=== PATIENT | female | born 1980 | race Caucasian/White ===

== ENCOUNTER 2022-11-23 11:34 | Emergency (ER) | payer MEDICAID, SELFPAY ==
[2022-11-23 12:04] VITALS: BP 180/127; PULSE 70; RESP 18; TEMP 36; O2SAT 99; BMI 39.0
--- NOTE | 2022-11-23 13:01 | ED_ITS ---
HPI - Dental/Oral General Time Seen by Provider: 13:01 Date Seen: 11/23/22 Chief complaint: Dental/Oral/Mouth Injury/Pain Stated complaint: Lower teeth pain Time Seen by Provider: 11/23/22 12:55 Source: patient Mode of arrival: ambulatory Limitations: no limitations History of Present Illness HPI Narrative: Patient is a 41-year-old female with no medical issues presented emergency department for tooth pain. She says the pain started about a week ago. She has been trying given with a dentist but cannot get in until December. She states she has had symptoms like this intermittently in the past and antibiotics have helped her previously. States she has taken Tylenol and ibuprofen with some improvement in her symptoms. Denies fevers, chills, chest pain, shortness of breath, difficulty swallowing or breathing. She had also states when she brushes her teeth the gums were began to bleed. It is teeth 23 through 26 that is causing her issue. Related Data Home Medications Medication Instructions Recorded Confirmed bisoprolol fumarate 5 mg tablet 5 mg PO DAILY 11/23/22 11/23/22 Previous Rx's Medication Instructions Recorded amoxicillin 500 mg capsule 500 mg PO TID #15 caps 11/23/22 Allergies Allergy/AdvReac Type Severity Reaction Status Date / Time adhesives Allergy Mild rash, Uncoded 11/23/22 12:09 redness at site Review of Systems Status of ROS: Reports: 6 or more systems reviewed and unremarkable except as noted in History and below [facility] Social History Smoking Status: Unknown if ever smoked How often do you have a drink containing alcohol: never AUDIT-C Alcohol total score: 0 Non-prescribed substance use: denies use Exam Narrative: Exam Narrative: Const: Well-nourished, Well-developed, in mild distress Eyes: PERRL, no conjunctival injection, and symmetrical lids ENMT: Atraumatic external nose and ears. Moist mucous membranes. Inflammation noted to the gum surrounding tooth 23 through 26. Previous dental work seen. Uvula midline. No obvious signs of deep neck space abscess Neck: Symmetric, trachea midline, No thyromegaly. CVS: RRR, No murmurs or gallops. Peripheral pulses 2+ and equal in all extremities RESP: Unlabored respiratory effort. Clear to auscultation bilaterally. MSK:Extremities w/o deformity, Normal Active ROM Skin: Warm, Dry. No rashes or lesions. Neuro: Normal Muscle tone, No focal neurological deficits. Psych: Awake, Alert, & Oriented x3. Appropriate mood and affect. Const: Vital Signs, click to edit/add: Vital Signs - 24 hr 11/23/22 12:04 Temperature 96.8 F L Pulse Rate [Right Pulse Oximeter] 70 Respiratory Rate 18 Blood Pressure [Le ft Upper Arm] 180/127 H Pulse Oximetry 99 Oxygen Delivery Me thod Room Air Course Vital Signs Vital signs: Initial Vital Signs Temperature 96.8 F L 11/23/22 12:04 Temperature Source Temporal Artery Scan 11/23/22 12:04 Pulse Rate 70 11/23/22 12:04 Respiratory Rate 18 11/23/22 12:04 Blood Pressure 180/127 H 11/23/22 12:04 Blood Pressure Mean 144 H 11/23/22 12:04 Blood Pressure Position Sitting 11/23/22 12:04 Pulse Oximetry 99 11/23/22 12:04 Oxygen Delivery Method Room Air 11/23/22 12:04 Vital Signs Temperature 96.8 F L 11/23/22 12:04 Pulse Rate 70 11/23/22 12:04 Respiratory Rate 18 11/23/22 12:04 Blood Pressure 180/127 H 11/23/22 12:04 Pulse Oximetry 99 11/23/22 12:04 Oxygen Delivery Method Room Air 11/23/22 12:04 Temperature 96.8 F L 11/23/22 12:04 Pulse Rate 70 11/23/22 12:04 Respiratory Rate 18 11/23/22 12:04 Blood Pressure 180/127 H 11/23/22 12:04 Pulse Oximetry 99 11/23/22 12:04 Oxygen Delivery Method Room Air 11/23/22 12:04 MDM - Dental/Oral MDM Narrative Medical decision making narrative: Patient is a 41-year-old female presented emergency department for pain to teeth 23 through 26. Pain has been going on for a week. She can see a dentist next month. On exam there is inflammation to the gum surrounding previous mention teeth. She has previous dental work done. She has below average dentition. Brii ruiz has no signs of deep neck space abscesses at this time I am not concerned about any impending airway issues. Physical exam was otherwise unremarkable. She will be discharged home with amoxicillin. She is agreeable to this plan. She is hypertensive at this time but is having no symptoms from it I do not believe workup is necessary. Differential Diagnosis Differential diagnosis: Likely gingival abscess, dental caries, toothache and dental abscess Discharge Plan Discharge Clinical Impression: Dental caries Patient Disposition: Home, Self-Care Condition: Stable Instructions: Mouth Care (ED) Additional Instructions: Follow-up with your dentist. Return for new or worsening symptoms. Take Tylenol and ibuprofen for pain. Prescribed amoxicillin. If you begin to develop difficulty swallowing or breathing return to the emergency department Prescriptions: New amoxicillin 500 mg capsule 500 mg PO TID Qty: 15 0RF No Action bisoprolol fumarate 5 mg tablet 5 mg PO DAILY Stand Alone Forms: [employer] Info Instructions
== END 2022-11-23 13:18 | disposition home or self-care (01) ==
LOC: ED 13:09
PROVIDERS: Emergency Provider Student in an Organized Health Care Education/Training Program
DX: K02.9 Dental caries, unspecified (principal)
CPT/HCPCS: 99282; 99283

== ENCOUNTER 2023-04-14 09:51 | Emergency (ER) | payer OTHER, MEDICAID, SELFPAY ==
[2023-04-14 10:08] VITALS: BP 150/82; PULSE 66; RESP 16; TEMP 36.4; O2SAT 96; BMI 38.1
--- NOTE | 2023-04-14 11:00 | ED_ITS ---
HPI - Wound/Laceration General Time Seen by Provider: 11:00 Date Seen: 04/14/23 Chief Complaint: Laceration/Wound Stated Complaint: Lac R finger Time Seen by Provider: 04/14/23 11:00 Source: patient and RN notes reviewed Mode of arrival: ambulatory Limitations: no limitations History of Present Illness HPI narrative: Navi is a very pleasant 42-year-old female previously healthy who comes to the [facility] for evaluation regarding a laceration to her right 5th finger at work. Patient notes that this was from the edge of a can. Patient works at [employer] and makes [employer]. She is able to flex and extend her finger. She does note it does hurt somewhat. She thinks her last tetanus may have been around 2003 but is not certain. Patient is not a diabetic. No numbness or tingling in this area. Related Data Home Medications Medication Instructions Recorded Confirmed bisoprolol fumarate 5 mg tablet 5 mg PO DAILY 11/23/22 04/14/23 Previous Rx's Medication Instructions Recorded amoxicillin 500 mg capsule 500 mg PO TID #15 caps 11/23/22 Allergies Allergy/AdvReac Type Severity Reaction Status Date / Time adhesives Allergy Mild rash, Uncoded 11/23/22 12:09 redness at site Review of Systems Status of ROS: Reports: 6 or more systems reviewed and unremarkable except as noted in History and below [facility] Social History Smoking Status: Current some day smoker How often do you have a drink containing alcohol: never AUDIT-C Alcohol total score: 0 Non-prescribed substance use: denies use Exam Narrative: Exam Narrative: Alert and oriented very pleasant young woman in no acute distress. Examination of her right 5th finger shows a 1.1 cm laceration extending from the medial aspect near the PIP onto the dorsal surface of her 5th finger. When she flexes her finger you can see that the epidermis and dermis or compromise. No underlying structures are noted. Strength and motor fully intact with extension of both the D IP and PIP. Sensation is also intact. No foreign bodies are noted. This wound was cleansed by nursing. No foreign bodies were noted. Anesthetized with 1% lidocaine with epinephrine. Wound was irrigated with 30 mL of normal saline. Three sutures of 4-0 Ethilon were placed in interrupted fashion with good wound closure. Patient tolerated procedure well Const: Vital Signs, click to edit/add: Vital Signs - 24 hr 04/14/23 10:08 Temperature 97.6 F Pulse Rate [Pulse Oximeter] 66 Respiratory Rate 16 Blood Pressure [Le ft Upper Arm] 150/82 H Pulse Oximetry 96 Oxygen Delivery Me thod Room Air Documenting provider has reviewed patient's vital signs: yes Course Vital Signs Vital signs: Initial Vital Signs Temperature 97.6 F 04/14/23 10:08 Temperature Source Temporal Artery Scan 04/14/23 10:08 Pulse Rate 66 04/14/23 10:08 Respiratory Rate 16 04/14/23 10:08 Blood Pressure 150/82 H 04/14/23 10:08 Blood Pressure Mean 104 04/14/23 10:08 Blood Pressure Position Supine 04/14/23 10:08 Pulse Oximetry 96 04/14/23 10:08 Oxygen Delivery Method Room Air 04/14/23 10:08 Vital Signs Temperature 97.6 F 04/14/23 10:08 Pulse Rate 66 04/14/23 10:08 Respiratory Rate 16 04/14/23 10:08 Blood Pressure 150/82 H 04/14/23 10:08 Pulse Oximetry 96 04/14/23 10:08 Oxygen Delivery Method Room Air 04/14/23 10:08 Temperature 97.6 F 04/14/23 10:08 Pulse Rate 66 04/14/23 10:08 Respiratory Rate 16 04/14/23 10:08 Blood Pressure 150/82 H 04/14/23 10:08 Pulse Oximetry 96 04/14/23 10:08 Oxygen Delivery Method Room Air 04/14/23 10:08 Medications Administered Medications: Generic Name Dose Route Start Last Admin Trade Name Freq PRN Reason Stop Dose Admin Lidocaine/Epinephrine 20 ml 04/14/23 11:04 04/14/23 11:25 Lidocaine 1%-Epi 1:100,000 20 Ml INFILTRATI 04/14/23 11:05 20 ml ONCE ONE Administration MDM - Wound/Laceration MDM Narrative Medical decision making narrative: 1. 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 I have told her that suture removal will be in 10 days time. She should monitor for signs and symptoms of infection which we have discussed. Further I would like her to limit bending over the next 3-5 days as those wound edges start to adhere to each other. She is advised that she may wash your hands are shower but she should not be soaking her hand in water until sutures are removed. Tylenol or ibuprofen as needed for pain 2. Disposition-last tetanus was in 2014 and patient elects not to update at this time. Return as needed for worsening symptoms. Discharge Plan Discharge Clinical Impression: Laceration Patient Disposition: Home, Self-Care Condition: Improved Additional Instructions: suture removal in 10 days keep clean and dry. you may shower or wash your hands but do not soak wound in a tub or pool, etc. No dish washing monitor for infection. Seek medical attention for pus like drainage, increaseing redness or fever Limit extreme bending for at least 3-5 days Prescriptions: No Action bisoprolol fumarate 5 mg tablet 5 mg PO DAILY amoxicillin 500 mg capsule 500 mg PO TID Qty: 15 0RF Follow Up/Referrals: Provider,Not a Local [Primary Care Provider] - Stand Alone Forms: [employer] Info Instructions
--- NOTE | 2023-04-14 11:41 | ED.NURSE ---
Bacitracin, bandaid, and gauze roll applied to wound on pt R pinky finger.
== END 2023-04-14 11:42 | disposition home or self-care (01) ==
LOC: ED 11:13
PROVIDERS: Emergency Provider Family Medicine
DX: S61.216A Laceration without foreign body of right little finger without damage to nail, initial encounter (principal); W26.9XXA Contact with unspecified sharp object(s), initial encounter
CPT/HCPCS: 12001; 99283

== ENCOUNTER 2023-09-05 15:19 | Emergency (ER) | payer MEDICAID, SELFPAY ==
[2023-09-05 15:23] VITALS: BP 158/87; PULSE 68; RESP 18; TEMP 36.2; O2SAT 100; BMI 37.2
--- NOTE | 2023-09-05 15:44 | ED_ITS ---
HPI - General Adult General Chief complaint: Unspecified Complaint, Adult Stated complaint: possible eyebrow infection Time Seen by Provider: 09/05/23 15:25 History of Present Illness HPI narrative: This 42-year-old female has a piercing in her right eyebrow that she had placed about 2 months ago. She states that she bumped her eyebrow recently and now has some erythema and a little bit a crusting on the inferior pole of the the piercing. She wonders if there may be an infection. Related Data Home Medications Medication Instructions Recorded Confirmed bisoprolol fumarate 5 mg tablet 5 mg PO DAILY 11/23/22 09/05/23 Previous Rx's Medication Instructions Recorded cephalexin 500 mg capsule 500 mg PO TID 3 days #9 caps 09/05/23 Allergies Allergy/AdvReac Type Severity Reaction Status Date / Time adhesives Allergy Mild rash, Uncoded 11/23/22 12:09 redness at site Review of Systems Status of ROS: Reports: 10 or more systems reviewed and unremarkable except as noted in History and below Narrative: Constitutional: No fevers, no weight gain or loss. Eyes: No discharge. No vision changes. HENT: No congestion, no sore throat, no ear pain. Cardiovascular: No chest pain, no palpitations. Respiratory: No shortness of breath, no wheezes, no cough. Gastrointestinal: No abdominal pain, no vomiting, no diarrhea. Genitourinary: No dysuria, no hematuria. Musculoskeletal: Normal range of motion. Skin: No rashes, no pruritis. Neurological: No dizziness, weakness, sensory change, speech change. Endo/Heme/Allergies: No bruising or bleeding. No polydipsia. Pysch: no suicidality, no anxiety, no insomnia. All other systems reviewed and are negative. [facility] Social History Smoking Status: Current every day smoker What tobacco products do you use: cigarettes How often do you have a drink containing alcohol: never How often do you have six or more drinks on one occasion: Never AUDIT-C Alcohol total score: 0 Non-prescribed substance use: denies use Exam Narrative: Exam Narrative: Constitutional: Well-developed, well-nourished, no acute distress. HEENT: Normocephalic, atraumatic. Mild erythema around the piercing of the right eyebrow with mild swelling. No purulent drainage. Neck: Normal range of motion. Nontender. Supple. Heart: Intact distal pulses. Lungs: No chest discomfort. No wheezes, rhonchi, or rales. Abdomen: Nontender. Back: Normal range of motion. Extremities: Normal range of motion. No injury. Skin: Intact. No rash. Warm. No erythema or pallor. Neurologic: No altered sensation. No weakness. Alert and oriented. Psychiatric: No suicidality. No anxiety or depression. No insomnia. Nursing notes and vitals signs are reviewed. Const: Vital Signs, click to edit/add: Vital Signs - 24 hr 09/05/23 15:23 Temperature 97.2 F L Pulse Rate [Right Pulse Oximeter] 68 Respiratory Rate 18 Blood Pressure [Ri ght Upper Arm] 158/87 H Pulse Oximetry 100 Oxygen Delivery Me thod Room Air Course Vital Signs Vital signs: Initial Vital Signs Temperature 97.2 F L 09/05/23 15:23 Temperature Source Temporal Artery Scan 09/05/23 15:23 Pulse Rate 68 09/05/23 15:23 Respiratory Rate 18 09/05/23 15:23 Blood Pressure 158/87 H 09/05/23 15:23 Blood Pressure Mean 110 H 09/05/23 15:23 Blood Pressure Position Sitting 09/05/23 15:23 Pulse Oximetry 100 09/05/23 15:23 Oxygen Delivery Method Room Air 09/05/23 15:23 Vital Signs Temperature 97.2 F L 09/05/23 15:23 Pulse Rate 68 09/05/23 15:23 Respiratory Rate 18 09/05/23 15:23 Blood Pressure 158/87 H 09/05/23 15:23 Pulse Oximetry 100 09/05/23 15:23 Oxygen Delivery Method Room Air 09/05/23 15:23 Temperature 97.2 F L 09/05/23 15:23 Pulse Rate 68 09/05/23 15:23 Respiratory Rate 18 09/05/23 15:23 Blood Pressure 158/87 H 09/05/23 15:23 Pulse Oximetry 100 09/05/23 15:23 Oxygen Delivery Method Room Air 09/05/23 15:23 Medical Decision Making MDM Narrative Medical decision making narrative: This patient has an eyebrow piercing on the right side that was bumped recently and now she is concerned there may be infection. She does have some mild swelling and erythema that seems more likely to be related to trauma rather than infection. There is no sign of abscess or purulent drainage except for a little bit a crusting on the inferior entry of the piercing. I stated to the patient that it does not appear to be in infection but agreed to give her a few days of Keflex just in abundance of caution. Discharge Plan Discharge Clinical Impression: Injury of eyebrow Patient Disposition: Home, Self-Care Condition: Stable Additional Instructions: Take medication as prescribed. Follow up with MD return if worsening. Prescriptions: New cephalexin 500 mg capsule 500 mg PO TID 3 Days Qty: 9 0RF No Action bisoprolol fumarate 5 mg tablet 5 mg PO DAILY Follow Up/Referrals: Provider,Not a Local [Primary Care Provider] - Stand Alone Forms: [employer] Info Instructions
--- OUTSIDE RECORDS SUMMARY | 2023-09-05 15:55 | XMS_ITS | Clinical Summary ---
Author Name Unknown Organization [facility] Address [place], [place] [address] Care Team Providers Care Stave Inspector Name Role Phone Brandi Concepcion MD Primary [facility] Allergies No known active allergies Medications Medication Sig Dispensed Refills Start Date End Date Status clotrimazole (LOTRIMIN) 1 % creamIndications:Itch ing in the vaginal area Apply topically to affected area(s) two times daily. 45 g 07/09/2022 Active Blood Pressure Monitor KitIndications:Elevat ed blood pressure reading without diagnosis of hypertension Frequency of testing: once a day 1 Each 12/08/2022 Active amLODIPine (NORVASC) 2.5 mg tabletIndications:HTN (hypertension) Take 1 Tablet (2.5 mg) by mouth once daily. 90 Tablet 3 12/29/2022 Active eletriptan (Relpax) 40 mg tabletIndications:Oth er migraine without status migrainosus, not intractable Take 0.5 Tablets (20 mg) by mouth every 2 hours if needed for Migraine (max of 2 doses in 24 hours.). Max dose: 40mg in 24 hrs. >She failed imitrex. 6 Tablet 3 12/29/2022 Active bisoprolol (ZEBETA) 5 mg tabletIndications:Pal pitations Take 1 Tablet (5 mg) by mouth once daily. 90 Tablet 07/18/2023 Active Hospital, Clinic, or Other Facility Administered Medication Ordered Dose Route Frequency Start Date End Date Status etonogestrel subdermal implant (NEXPLANON) 68 mg implant [address],Encounter for removal and reinsertion of Nexplanon 1 Each Sdrm Q 3 YEARS 11/19/2022 11/18/2025 Active Active Problems Problem Noted Date Diagnosed Date HTN (hypertension) 12/29/2022 Prediabetes 12/08/[address] 11/17/2019 Overview: Placed in right arm on 11/17/22. Due for removal in 3 years-11/17/25. Alpa Branch PA-C, Family Medicine.....................11/19/2022 10:18 AM Palpitations Overview: PVCs, on medication Dec note from [place] had visit for follow up of PVCs - seen on extended holter monitor. Has been on 2 other medications and bisoprolol has worked the best. History of Chiari malformation Overview: h/o mild chiari malformation and has seen the neurologist in the past Resolved Problems Problem Noted Date Diagnosed Date Resolved Date Palpitations 11/17/2019 Encounters Date Type Department Care Team Description 07/17/[address] [id number] Brandi Concepcion MD Refill Request (Bisoprolol 5mg) from Last 3 Months Immunizations Name Administration Dates Next Due Influenza A (H1N1), Inactivated 04/08/2009 Td (Age >=7 Years) 01/24/2009 Tdap 08/10/2014 Family History Medical History Relation Name Comments Diabetes Brother Good Health Daughter Coronary artery disease Father firs t heart attack at age 58, 2nd HERNANDEZ at age 63 s/p triple bypass Diabetes Father Hyperlipidemia Father Diabetes Half-Brother COPD Maternal Grandfather Cirrhosis Maternal Grandfather Esophageal cancer Maternal Grandmother COPD Mother Diabetes Mother Cancer-prostate Paternal Grandfather Diabetes Paternal Grandmother Diabetes Sister Relation Name Status Comments Brother Alive Daughter Alive Father Alive Half-Brother Alive Maternal Grandfather (Age 60) Ci rrhosis, COPD Maternal Grandmother (Age 78) es ophageal cancer Mother Alive Paternal Grandfather (Age 93) pr ostate cancer Paternal Grandmother (Age 77) co mplications of diabetes Sister Alive Social History Tobacco Use Types Packs/Day Years Used Date Smoking Tobacco: Every Day Cigarettes 1 27.4 Started: 1996 Smokeless Tobacco: Never Tobacco Cessation:Ready to Q uit: No; Counseling Given: Yes Alcohol Use Standard Drinks/Week Comments Not Currently 0 (1 standard drink = 0.6 oz pur e alcohol) PHQ-2 Answer Date Recorded PHQ-2 TOTAL SCORE 1 12/08/2022 Social Connections Answer Date Recorded Frequency of Communication with Friends and Fami ly Not on file 07/17/2023 Financial Resource Strain Answer Date R ecorded Difficulty of Paying Living Expenses 3 07/09/2022 Difficulty of Paying Living Expenses Not on file 07/09/2022 Food Insecurity Answer Date Recorded Worried About Running Out of Food in the Last Ye ar 1 07/09/2022 Transportation Needs Answer Date Record ed Lack of Transportation (Medical) 1 07/09/2022 Housing Stability Answer Date Recorded Unable to Pay for Housing in the Last Year 1 07/09/2022 Sex and Gender Information Value Date Recorded Sex Assigned at Not on file Gender Identity Not on file Sexual Orientation Not on file Obstetrics History Last Filed Vital Signs Vital Sign Reading Time Taken Comments Blood Pressure 130/70 12/29/2022 1:58 PM CDT Pulse 63 12/29/2022 1:58 PM CDT Temperature 36.9 ??C (98.4 ??F) 11/22/2022 2:41 PM CD T Respiratory Rate 20 11/22/2022 2:41 PM CDT Oxygen Saturation 98% 12/08/2022 11:21 AM CDT Inhaled Oxygen Concentration - - Weight 101.6 kg (224 lb) 12/29/2022 1:58 PM CDT Height 160 cm (5' 3) 11/22/2022 2:43 PM CDT Body Mass Index 39.68 11/22/2022 2:43 PM CDT Plan of Treatment Health Maintenance Due Date Last Done Comments Pneumococcal series for age 6-64 (1 of 2 - PCV) 1988 COVID-19 vaccine series ( - 2022- season) 2022 BMI (ht and wt on same day) for age 18+ 07/10/2023 07/09/2022, 01/01/2021, 11/15/2020, Additional history exists Depression screening for age 12+ 12/09/2023 12/08/2022, 01/02/2021, 01/01/2021, Additional history exists Influenza for age 9-49 12/19/2023 04/08/2009 Tetanus booster 08/10/2024 08/10/2014, 01/24/2009 Pap test for age 21-65 10/30/2024 10/31/2019, 2019 Tdap Completed 08/10/2014 HIV for age 15-65 Completed 07/09/2022 Hepatitis C screening for ag e 18-79 Completed 07/09/2022 Procedures Procedure Name Priority Date/Time Associated Diagnosis Comments LC HIV-1/O/2, 4TH GENERATION Routine 07/09/2022 3:19 PM CDT Screening for STDs (sexually transmitted diseases) LC HCV ANTIBODY RFX TO QUANT PCR Routine 07/09/2022 3:19 PM CDT Screening for STDs (sexually transmitted diseases) HERITAGE CONSULTANT THIN PREP PAP SCREEN IMAGED Routine 10/31/2019 11:42 AM CDT Screening for malignant neoplasm of cervix from Last 3 Months or Most Recently Relevant to Health Maintenance Results * LC HCV ANTIBODY RFX TO QUANT PCR (07/09/2022 3:19 PM CDT) HCV Ab Non Reactive Non Reactive 07/14/2022 11:[address] [facility] Blood BLOOD SPECIMEN / Unknown Venipuncture / Unknown 07/09/2022 3:19 PM CDT 07/09/2022 3:22 PM CDT Narrative [facility] ([facility]) - 07/14/2022 11:10 AM CDT Performed at: ??[address] ??[id number] Maintainer Plant: Thomas Hayes MD, Phone: ??[phone] [facility] ([facility]) [address] [place] [address] * LC HIV-1/O/2, 4TH GENERATION (07/09/2022 3:19 PM CDT) Pathologist [facility] HIV Scr 4th Gen Non Reactive Non Reactive 07/14/2022 11:[address] [facility] ([facility]) Comment: HIV Negative HIV-1/HIV-2 antibodies and HIV-1 p24 antigen were NOT detected. There is no laboratory evidence of HIV infection. Blood BLOOD SPECIMEN / Unknown Venipuncture / Unknown 07/09/2022 3:19 PM CDT 07/09/2022 3:22 PM CDT Narrative [facility] ([facility]) - 07/14/2022 11:10 AM CDT Performed at: ??[address] ??[id number] Maintainer Plant: Thomas Hayes MD, Phone: ??[phone] [facility] ([facility]) [address] [place] [address], * HERITAGE CONSULTANT THIN PREP PAP SCREEN IMAGED [[id number]] (10/31/2019 11:42 AM CDT) [facility] Case Report Gynecologic Cytology Report ? Case: [id number] ? Authorizing Provider: ??Alpa Gamboa MD ??Collected: ? 10/31/2019 1142 ? Ordering Location: ? [facility] ?Received: ?10/31/2019 1239 ? Clinic ? First Screen: ?Nickolas Hopper ? Specimen: ?HERITAGE CONSULTANT ThinPrep Vial Screening, Cervical ? 11/03/2019 1:51 PM CDT [facility] INTERPRETATION/ RESULT NEGATIVE FOR INTRAEPITHELIAL LESION OR MALIGNANCY (NIL) (none) 11/03/2019 1:51 PM CDT [facility] IMEN ADEQUACY Satisfactory for evaluation Endocervical component present 11/03/2019 1:51 PM CDT [facility] [employer] HPV REQUEST HPV and PAP 11/03/2019 1:51 PM CDT [facility] [employer] [facility] Date of LMP 10/10/2019 11/03/2019 1:51 PM CDT [facility] [employer] [facility] Last Pap Date 2016 11/03/2019 1:51 PM CDT [facility] Last Pap Result NIL 0 1:51 PM CDT [facility] Abnormal Pap or Falun Bx in last 5 years No 11/03/2019 1:51 PM CDT [facility] [facility] Menstrual Status Regular Periods 11/03/2019 1:51 PM CDT [facility] [employer] [facility] Falun Bx Done Today No 11/03/2019 1:51 PM CDT [facility] Additional Information None given 11/03/2019 1:51 PM CDT [facility] Comment: Cytology is screened at [facility] - [address], [place] [address] and [facility] - [address] [place] [address], [place] [address] and [facility] - [address] [place] [address] Interpreted at [facility] - [address] [place] [address], [place] [address] Automated Review Successful 11/03/2019 1:51 PM CDT [facility] Comment:Specimen processed s uccessfully by automated funeral director/embalmer device, [employer] System, [email or web address] ANCILLARY TESTING HERITAGE CONSULTANT HPV Ordered, Please see separate report 11/03/2019 1:51 PM CDT [facility] Note The pap test is a screening technique, not a diagnostic procedure. It is used primarily to screen for squamous cancers and precursor lesions. Published studies have shown that it is subject to both false negative and false positive results. The pap test should not be used as the sole means to diagnose or exclude pre-malignant and malignant lesions. 11/03/2019 1:51 PM CDT [facility] Other (Cervical) Non-Blood / Unknown 10/31/2019 11:42 AM CDT 10/31/2019 12:39 PM CDT Alpa Gamboa MD PATHOLOGY/[facility]OLO [facility] [address] [place] [address], [place] from Last 3 Months or Most Recently Relevant to Health Maintenance Care Teams Stave Inspector Relationship Specialty Start Date End Date Brandi Concepcion MD [address] [place], [place] [address] [address] PCP - General Family Practice 07/09/22
== END 2023-09-05 15:55 | disposition home or self-care (01) ==
LOC: ED 15:54
PROVIDERS: Emergency Provider Emergency Medicine Emergency Medical Services
DX: S05.8X1A Other injuries of right eye and orbit, initial encounter (principal); W22.8XXA Striking against or struck by other objects, initial encounter
CPT/HCPCS: 99283; 99284

== ENCOUNTER 2024-07-06 05:25 | Emergency (ER) | payer OTHER, SELFPAY ==
--- OUTSIDE RECORDS SUMMARY | 2024-07-06 05:27 | XMS_ITS | Clinical Summary ---
Author Organization [employer] [facility] [facility] Address [address] [place] [address] Care Team Providers Care Frame And Scrap Crusher Name Role Phone Anali Moreau Primary Care Provider [phone] Allergies No known active allergies Medications clotrimazole (LOTRIMIN) 1 % creamIndications:Itc angelica in the vaginal area Apply topically to affected area(s) two times daily. 45 g 07/10/19 23 Active Blood Pressure Monitor KitIndications:[place] connie blood pressure reading without diagnosis of hypertension Frequency of testing: once a day 1 Each 12/09/19 23 Active mupirocin 2% ointment APPLY TOPICALLY TO THE AFFECTED AREA TWICE DAILY FOR 7 DAYS 10/24/19 24 Active bisoprolol (ZEBETA) 5 mg tabletIndications:Pa lpitations Take 1 Tablet (5 mg) by mouth once daily. 90 Tablet 3 11/22/19 24 Active famotidine (PEPCID) 20 mg tabletIndications:Hi story of gastroesophageal reflux (GERD) Take 1 Tablet (20 mg) by mouth 2 times daily if needed for GI Upset or Heartburn. 60 Tablet 5 11/22/19 24 Active eletriptan (RELPAX) 20 mg tabletIndications:Ot her migraine without status migrainosus, intractable Take 1 Tablet (20 mg) by mouth 2 times daily if needed for Migraine. Give at minimum 2hrs apart. Max Dose: 80mg per 24hrs. 6 Tablet 1 04/28/19 25 Active losartan (COZAAR) 50 mg tabletIndications:HT N (hypertension) Take 1 Tablet (50 mg) by mouth once daily. 90 Tablet 05/26/19 25 Active hydroCHLOROthiazide 25 mg tabletIndications:HT N (hypertension) Take 1 Tablet (25 mg) by mouth once daily. 90 Tablet 06/24/19 25 Active Hospital, Clinic, or Other Facility Administered Medication Ordered Dose Route Frequency Start Date End Date Status etonogestrel subdermal implant (NEXPLANON) 68 mg implant [address],Encounter for removal and reinsertion of Nexplanon 1 Each Sdrm Q 3 YEARS 11/19/2022 11/18/2025 Active Active Problems Problem Noted Date Diagnosed Date HTN (hypertension) 12/29/2022 Prediabetes 12/08/[address] 11/17/2019 Overview (11/19/2022): Placed in right arm on 11/17/22. Due for removal in 3 years-11/17/25. Alpa Branch PA-C, Family Medicine.....................11/19/2022 10:18 AM Palpitations Overview (12/29/2022): PVCs, on medication Dec note from [place] had visit for follow up of PVCs - seen on extended holter monitor. Has been on 2 other medications and bisoprolol has worked the best. History of Chiari malformation Overview (12/29/2022): h/o mild chiari malformation and has seen the neurologist in the past Resolved Problems Problem Noted Date Diagnosed Date Resolved Date Palpitations 11/17/2019 Encounters Date Type Department Care Team Description 06/23/2024 10:50 AM WOODYARD OPERATOR Office Visit [facility] [address] [place] [address] Anali Moreau, DO Blood Pressure (Losartan 50 mg, has not been checking bp at home. ) 06/23/2024 Travel 05/29/2024 Telephone [facility] [address] [place] [address] Anali Moreau, DO Critical Results 05/27/2024 Telephone [facility] [address] [place] [address] Chino Byrne MD Abnormal Lab Results 05/26/2024 2:30 PM WOODYARD OPERATOR Nurse/Clinic Staff Only [facility] [address] [place] [address] Blood Pressure 05/26/2024 2:15 PM WOODYARD OPERATOR Orders Only [facility] [address] [place] [address] [place], [place] Lab 05/26/2024 Travel 05/01/2024 Refill [facility] [address] [place] [address] Anali Moreau, Refill Request (Losartan 25mg tablets ) 04/28/2024 3:15 PM WOODYARD OPERATOR Office Visit [facility] [address] [place] [address] Anali Moreau, DO Blood Pressure (currently on 2.5mg of amlodipine, feeling that headaches and swelling have worsened since starting med. ) 04/27/2024 Travel from Last 3 Months Immunizations Immunization Administration Dates Next Due DTP 07/30/1988, 5,05/28/1983,03/26/1983, 01/29/1983 Influenza A (H1N1), Inactivated 04/08/2009 MMR 08/30/1995,03/31/1984 Polio Virus, Unspecified 07/30/1988,05/20,05/28/1983,03/26/1983, 01/29/1983 Td (Age >=7 Years) 01/24/2009,08/30/1995 Tdap 08/10/2014 Family History Medical History Relation Name Comments Diabetes Brother Good Health Daughter Coronary artery disease Father firs t heart attack at age 58, 2nd HERNANDEZ at age 63 s/p triple bypass Diabetes Father Hyperlipidemia Father Diabetes Half-Brother COPD Maternal Grandfather Cirrhosis Maternal Grandfather Esophageal cancer Maternal Grandmother COPD Mother Diabetes Mother Kidney disease Mother Cancer-prostate Paternal Grandfather Diabetes Paternal Grandmother [...] Date Smoking Tobacco: Every Day Cigarettes 1 28.2 Started: 1996 Smokeless Tobacco: Never Tobacco Cessation:Ready to Q uit: No; Counseling Given: Yes Alcohol Use Standard Drinks/Week Comments Not Currently 0 (1 standard drink = 0.6 oz pur e alcohol) PHQ-2 Answer Date Recorded PHQ-2 TOTAL SCORE 1 12/08/2022 Social Connections Answer Date Recorded Do you often feel lonely or isolated from those around you? 0 11/18/2023 Financial Resource Strain Answer Date R ecorded Difficulty of Paying Living Expenses 2 11/18/2023 Difficulty of Paying Living Expenses 1 11/18/2023 Food Insecurity Answer Date Recorded Do you worry your food will run out before you are able to buy more? 1 11/18/2023 Transportation Needs Answer Date Record ed Does lack of transportation keep you from medica l appointments? 1 11/18/2023 Does lack of transportation keep you from work, meetings or getting things that you need? 1 11/18/2023 Housing Stability Answer Date Recorded What is your housing situation today? 1 11/18/2023 Utilities Answer Date Recorded Do you have trouble paying f or utilities (for example, heat, electricity, water, phone)? 1 11/18/2023 Comments No Sex and Gender Information Value Date Recorded Sex Assigned at Not on file Legal Sex Female 8:09 AM CDT Gender Identity Not on file Sexual Orientation Not on file Obstetrics History Last Filed Vital Signs Vital Sign Reading Time Taken Comments Blood Pressure 155/88 06/23/2024 11:13 AM WOODYARD OPERATOR Pulse 64 06/23/2024 11:13 AM WOODYARD OPERATOR Temperature 36.9 C (98.4 F) 11/22/2022 2:41 PM CDT Respiratory Rate 20 11/22/2022 2:41 PM CDT Oxygen Saturation 99% 05/26/2024 2:27 PM WOODYARD OPERATOR Inhaled Oxygen Concentration - - Weight 106.5 kg (234 lb 12.8 oz) 11/22/2023 3:19 PM CDT Height 160 cm (5' 3) 11/22/2022 2:43 PM CDT Body Mass Index 41.59 11/22/2022 2:43 PM CDT Plan of Treatment Upcoming Encounters Date Type Department Care Team (Late st Contact Info) Description 07/24/2024 2:15 PM CDT Orders Only [facility] [address] [place] [address] [address] [place] 07/24/2024 2:40 PM CDT Nurse/Clinic Staff Only [facility] [address] [place] [address] [address] Health Maintenance Due Date Last Done Comments Pneumococcal series for age 6-49 (1 of 2 - PCV) 2001 BMI (ht and wt on same day) for age 18+ 07/10/2023 07/09/2022, 01/01/2021, 11/15/2020, Additional history exists Depression screening for age 12+ 12/09/2023 12/08/2022, 01/02/2021, 01/01/2021, Additional history exists COVID-19 vaccine series ( season) 2023 Influenza Vaccine (#1) 2023 Tetanus booster 08/10/2024 08/10/2014, 1011/2008, 08/30/1995 Pap test for age 21-65 10/30/2024 10/31/2019, 2019 Tdap Completed 08/10/2014 HIV for age 15-65 Completed 07/09/2022 Hepatitis C screening for ag e 18-79 Completed 07/09/2022 Procedures Procedure Name Priority Date/Time Associated Diagnosis Comments HEMOGLOBIN A1C Routine 06/23/2024 11:48 AM WOODYARD OPERATOR Screening for diabetes mellitus CREATININE Routine 06/23/2024 11:48 AM WOODYARD OPERATOR HTN (hypertension) POTASSIUM Routine 06/23/2024 11:48 AM WOODYARD OPERATOR HTN (hypertension) BASIC METABOLIC PANEL Routine 05/26/2024 2:11 PM WOODYARD OPERATOR HTN (hypertension) LC HIV-1/O/2, 4TH GENERATION Routine 07/09/2022 3:19 PM CDT Screening for STDs (sexually transmitted diseases) LC HCV ANTIBODY RFX TO QUANT PCR Routine 07/09/2022 3:19 PM CDT Screening for STDs (sexually transmitted diseases) ROOMING HOUSE INSPECTOR THIN PREP PAP SCREEN IMAGED Routine 10/31/2019 11:42 AM CDT Screening for malignant neoplasm of cervix from Last 3 Months or Most Recently Relevant to Health Maintenance Results * (ABNORMAL) HEMOGLOBIN A1C (06/23/2024 11:48 AM WOODYARD OPERATOR) HEMOGLOBIN A1C 6.1(H) <5.7 % of total Hgb [facility] Comment: For someone without known diabetes, a hemoglobin A1c value between 5.7% and 6.4% is consistent with prediabetes and should be confirmed with a follow-up test. For someone with known diabetes, a value <7% indicates that their diabetes is well controlled. A1c targets should be individualized based on duration of diabetes, age, comorbid conditions, and other considerations. This assay result is consistent with an increased risk of diabetes. Currently, no consensus exists regarding use of hemoglobin A1c for diagnosis of diabetes for children. Blood BLOOD SPECIMEN / Unknown 06/23/2024 11:48 AM WOODYARD OPERATOR 06/23/2024 11:49 AM WOODYARD OPERATOR us Anali Moreau DO CHEMISTRY Final Resu lt [facility] [address] [place] [address], [facility] [address] [place] [address] * POTASSIUM (06/23/2024 11:48 AM WOODYARD OPERATOR) POTASSIUM 4.4 3.5 - 5.3 mmol/L [facility] Blood BLOOD SPECIMEN / Unknown 06/23/2024 11:48 AM WOODYARD OPERATOR 06/23/2024 11:49 AM WOODYARD OPERATOR us Anali Moreau DO CHEMISTRY Final Resu lt [facility] [address] [place] [address], [facility] [address] [place] [address] * CREATININE (06/23/2024 11:48 AM WOODYARD OPERATOR) CREATININE 0.59 0.50 - 0.99 mg/dL [facility] EGFR 116 > OR = 60 mL/min/1.73 m2 [facility] Blood BLOOD SPECIMEN / Unknown 06/23/2024 11:48 AM WOODYARD OPERATOR 06/23/2024 11:49 AM WOODYARD OPERATOR Anali Moreau DO CHEMISTRY Final Resu lt Performing Organization Address [facility]/ZIP Co de Phone Number [facility] [address] [address], [facility] [address] [place] [phone] * (ABNORMAL) BASIC METABOLIC PANEL (05/26/2024 2:11 PM WOODYARD OPERATOR) GLUCOSE 43(L) 65 - 99 mg/dL [facility] Comment: Fasting reference interval UREA NITROGEN (BUN) 11 7 - 25 mg/dL [facility] CREATININE 0.71 0.50 - 0.99 mg/dL [facility] EGFR 109 > OR = 60 mL/min/1. 73m2 [facility] BUN/CREATININE RATIO SEE NOTE: 6 - 22 (calc) [facility] Comment: Not Reported: BUN and Creatinine are within reference range. SODIUM 139 135 - 146 mmol/L [facility] POTASSIUM 3.9 3.5 - 5.3 mmol/L [facility] CHLORIDE 104 98 - 110 mmol/L [facility] CARBON DIOXIDE 26 20 - 32 mmol/L [facility] ELECTROLYTE BALANCE 9 7 - 17 mmol/L (calc) [facility] CALCIUM 8.9 8.6 - 10.2 mg/dL [facility] Blood BLOOD SPECIMEN / Unknown 05/26/2024 2:11 PM WOODYARD OPERATOR 05/26/2024 2:12 PM WOODYARD OPERATOR Anali Moreau DO CHEMISTRY Final Resu lt [facility] [address] [place] [address], [place] [phone] [facility] [address] [place] [address] * LC HCV ANTIBODY RFX TO QUANT PCR (07/09/2022 3:19 PM CDT) Pathologist [facility] HCV Ab Non Reactive Non Reactive 07/14/2022 11:10 AM CDT [facility] Blood BLOOD SPECIMEN / Unknown Venipuncture / Unknown 07/09/2022 3:19 PM CDT 07/09/2022 3:22 PM CDT Narrative [facility] - 07/14/2022 11:10 AM CDT Performed at: [address] [place] [id number] Product Craftsman: Thomas Hayes MD, Phone: [phone] [facility] Fin al Result [facility] [address] [place] [address], [place] * LC HIV-1/O/2, 4TH GENERATION (07/09/2022 3:19 PM CDT) Pathologist [facility] HIV Scr 4th Gen Non Reactive Non Reactive 07/14/2022 11:10 AM CDT [facility] Comment: HIV Negative HIV-1/HIV-2 antibodies and HIV-1 p24 antigen were NOT detected. There is no laboratory evidence of HIV infection. Blood BLOOD SPECIMEN / Unknown Venipuncture / Unknown 07/09/2022 3:19 PM CDT 07/09/2022 3:22 PM CDT Narrative [facility]) - 07/14/2022 11:10 AM CDT Performed at: [address] [place] [id number] Product Craftsman: Thomas Hayes MD, Phone: [phone] [facility] Fin al Result [facility] ([facility]) [address] [place] [address], * ROOMING HOUSE INSPECTOR THIN PREP PAP SCREEN IMAGED [[id number]] (10/31/2019 11:42 AM CDT) Case Report Gynecologic Cytology Report Case: [id number] Authorizing Provider: Alpa Gamboa MD Collected: 10/31/2019 1142 Ordering Location: [facility] Received: 10/31/2019 1239 Clinic First Screen: Nickolas Hopper Specimen: ROOMING HOUSE INSPECTOR ThinPrep Vial Screening, Cervical 11/03/2019 1:51 PM CDT [facility] INTERPRETATION/ RESULT NEGATIVE FOR INTRAEPITHELIAL LESION OR MALIGNANCY (NIL) (none) 11/03/2019 1:51 PM CDT [facility] IMEN ADEQUACY Satisfactory for evaluation Endocervical component present 11/03/2019 1:51 PM CDT [facility] HPV REQUEST HPV and PAP 11/03/2019 1:51 PM CDT [facility] Date of LMP 10/10/2019 11/03/2019 1:51 PM CDT [facility] Last Pap Date 2016 11/03/2019 1:51 PM CDT [facility] Last Pap Result NIL 07/17/202 0 1:51 PM CDT [facility] Abnormal Pap or [facility] Bx in last 5 years No 11/03/2019 1:[address] [facility] Menstrual Status Regular Periods 11/03/2019 1:[address] [facility] Bx Done Today No 11/03/2019 1:[address] [facility] Additional Information None given 11/03/2019 1:[address] [facility] Comment: Cytology is screened at [facility] - [address], [place] [address] and [facility] - [address] [place] [address], [place] [address] and [facility] - [address] [place] [address] Interpreted at [facility] - [address] [place] [address], [place] [address] Automated Review Successful 11/03/2019 1:[address] [facility] Comment:Specimen processed s uccessfully by automated customer service coordinator device, ThinPrep Imaging System, [employer] ANCILLARY TESTING ROOMING HOUSE INSPECTOR HPV Ordered, Please see separate report 11/03/2019 1:[address] [facility] Note The pap test is [...] and malignant lesions. 11/03/2019 1:[address] [facility] Other (Cervical) Non-Blood / Unknown 10/31/2019 11:42 AM CDT 10/31/2019 12:39 PM CDT us Alpa Gamboa MD PATHOLOGY/CYTOLOGY Final Result [facility] [address] [place] [address], [place] from Last 3 Months or Most Recently Relevant to Health Maintenance Care Teams Frame And Scrap Crusher Relationship Specialty Start Date End Date Anali Moreau DO [address] [place] [address] PCP - General Family Practice 11/22/23
[2024-07-06 05:31] VITALS: BP 141/80; PULSE 72; RESP 18; TEMP 36.7; O2SAT 99; BMI 36.0
--- NOTE | 2024-07-06 05:39 | ED_ITS ---
HPI - General Adult General Chief complaint: Neck Injury/Pain Stated complaint: pain in left side of neck, chest and breast Time Seen by Provider: 07/06/24 05:39 History of Present Illness HPI narrative: CC: Left Neck Pain w/ Radiation Left Ribs pt. with above symptoms for the last 24 hours. denies fevers, n/v, diarrhea, cough , chest pain. 43-year-old woman presenting to the emergency department with concern of pain at the left side of her neck and down to the left low chest. This has been present for at least 24 hours. Has pain at the left neck and then she indicates moving down along her sternum and then down to the left anterior rib edge. Not short of breath. Does not recall any trauma. Did get a little numb sensation in her left jaw. Does think she is little swollen on the left low chest versus the right. She is concerned because family history of heart problems, she has high blood pressure and she smokes. Related Data Home Medications ?Medication ?Instructions ?Recorded ?Confirmed bisoprolol fumarate 5 mg tablet 5 mg PO DAILY 11/23/22 10/24/23 Allergies Allergy/AdvReac Type Severity Reaction Status Date / Time adhesives Allergy Mild rash, Uncoded 10/24/23 11:39 redness at site Review of Systems Status of ROS: Reports: 6 or more systems reviewed and unremarkable except as noted in History and below [facility] Social History Smoking Status: Current every day smoker What tobacco products do you use: cigarettes Second hand tobacco smoke exposure: Yes How often do you have a drink containing alcohol: never How often do you have six or more drinks on one occasion: Never AUDIT-C Alcohol total score: 0 Non-prescribed substance use: denies use Exam Narrative: Exam Narrative: Pleasant. NAD. Appears a little concerned. Breathing easily. No pulsatile mass about the neck or supraclavicular area. No supraclavicular crepitus. 2+ and equal radial pulses. No bruits. Lungs clear. Heart in regular rate and rhythm without murmur rub or gallop. Sore to palpation in the left sternocleidomastoid and scalene musculature. She demonstrates soreness with rotation or flexion to the left side. Very sore to palpation along the left rib margin as well. No blisters or erythema. Const: Vital Signs, click to edit/add: Vital Signs - 24 hr 07/06/24 05:31 Temperature 98.1 F Pulse Rate [Right Pulse Oximeter] 72 Respiratory Rate 18 Blood Pressure [Ri ght Upper Arm] 141/80 H Pulse Oximetry 99 Oxygen Delivery Me thod Room Air Documenting provider has reviewed patient's vital signs: yes Course Vital Signs Vital signs: Initial Vital Signs Temperature 98.1 F 07/06/24 05:31 Temperature Source Temporal Artery Scan 07/06/24 05:31 Pulse Rate 72 07/06/24 05:31 Respiratory Rate 18 07/06/24 05:31 Blood Pressure 141/80 H 07/06/24 05:31 Blood Pressure Mean 100 07/06/24 05:31 Blood Pressure Position Sitting 07/06/24 05:31 Pulse Oximetry 99 07/06/24 05:31 Oxygen Delivery Method Room Air 07/06/24 05:31 Vital Signs Temperature 98.1 F 07/06/24 05:31 Pulse Rate 72 07/06/24 05:31 Respiratory Rate 18 07/06/24 05:31 Blood Pressure 141/80 H 07/06/24 05:31 Pulse Oximetry 99 07/06/24 05:31 Oxygen Delivery Method Room Air 07/06/24 05:31 Temperature 98.1 F 07/06/24 06:41 Pulse Rate 78 07/06/24 06:41 Respiratory Rate 18 07/06/24 06:41 Blood Pressure 135/78 07/06/24 06:41 Pulse Oximetry 99 07/06/24 06:38 Oxygen Delivery Method Room Air 07/06/24 06:38 Medications Administered Medications: Discontinued Medications Generic Name Dose Route Start Last Admin Trade Name Freq PRN Reason Stop Dose Admin Lidocaine 1 patch 07/06/24 06:20 07/06/24 06:33 Lidocaine 5% Patch TRANSDERMA 07/06/24 06:21 1 patch ONCE ONE Administration Protocol Medical Decision Making MDM Narrative Medical decision making narrative: Does have some degree of reproducible chest wall pain. A differential might include aneurysm or vascular disruption/dissection otherwise but I do not see any outward evidence of that about the neck. Appears to have some costochondritis. Does appear to have also neck muscle tension and pain as noted in physical exam. Vitals overall reassuring. Would consider chest x-ray looking for evidence of mediastinal anomaly or perhaps pneumothorax. Also EKG for evidence of ischemia or dysrhythmia. Scores quite low in wells criteria for unlikely pulmonary embolism. Unlikely to be ischemic cardiac event due to duration and reproducibility. Chest x-ray independently reviewed by me looks to be WNL though larger cardiac silhouette; not however with clear cardiomegaly. No pneumothorax. Did offer lidocaine patch in the emergency department. See patient discharge plan for further discussion If this lidocaine patch is helpful, you can purchase more [id number]. Consider taking, with a little food, 400-600 mg of ibuprofen 3 times daily over the next 4-5 days. Alternative to this might be 375 mg of naproxen twice daily. Neck stretches as demonstrated. See handout for stretches for the upper back that might also be helpful in mobilizing/stretching the anterior chest and loosening your neck. Be seen for increasing shortness of breath, uncontrolled pain. Follow-up in a week if not improved otherwise Medical Records Medical records reviewed: Yes I reviewed the patient's medical records ECG Data Attestation: I personally reviewed and interpreted this ECG as follows: (Normal sinus rhythm rate of 68. No ST elevations or depressions. ) Discharge Plan Discharge Clinical Impression: Cervical muscle strain, Chest wall pain Patient Disposition: Home, Self-Care Condition: Stable Additional Instructions: If this lidocaine patch is helpful, you can purchase more [id number]. Consider taking, with a little food, 400-600 mg of ibuprofen 3 times daily over the next 4-5 days. Alternative to this might be 375 mg of naproxen twice daily. Neck stretches as demonstrated. See handout for stretches for the upper back that might also be helpful in mobilizing/stretching the anterior chest and loosening your neck. Be seen for increasing shortness of breath, uncontrolled pain. Follow-up in a week if not improved otherwise Prescriptions: No Action bisoprolol fumarate 5 mg tablet 5 mg PO DAILY Follow Up/Referrals: Provider,Not a Local [Non-Staff] - Stand Alone Forms: MyHealth Info Instructions
--- NOTE | 2024-07-06 05:52 | CRLHL7_ITS ---
For Patients: As a result of the Century Cures Act, medical imaging exams and procedure reports are released immediately into your electronic medical record. You may view this report before your referring provider. If you have questions, please contact your health care provider. INDICATION: Left neck sternal in lower rib margin chest pain for 24 hours TECHNIQUE: 1 view chest radiograph COMPARISON: None. FINDINGS: Devices: None. Lung volumes are good. No focal or diffuse opacities. No pleural effusion. No pneumothorax. Heart size is upper limits of normal for volume and technique. Normal upper mediastinal contours. Osseous structures appear normal. No fractures or focal lesions seen. IMPRESSION: Normal chest radiograph. Dictated by Laure Harmon MD @ 07/06/2024 6:08:38 AM (Electronically Signed)
[2024-07-06 06:00] VITALS: O2SAT 99
--- OUTSIDE RECORDS SUMMARY | 2024-07-06 06:13 | XMS_ITS | Clinical Summary ---
Author Organization [employer] [facility] Address [address] [place] [id number] Care Team Providers Care Car Dumper Operator Name Role Phone Anali Moreau Primary Care Provider +1- [phone] Allergies No known active allergies Medications clotrimazole (LOTRIMIN) 1 % creamIndications:Itc angelica in the vaginal area Apply topically to affected area(s) two times daily. 45 g 07/10/19 23 Active Blood Pressure Monitor KitIndications:[place] connie blood pressure reading without diagnosis of [...] (12/29/2022): PVCs, on medication Dec note from [place] had visit for follow up of PVCs [...] Department Care Team Description 06/23/2024 10:50 AM COLLATERAL SPECIALIST Office Visit [address] [place] [address] Anali Moreau, DO Blood Pressure (Losartan 50 mg, has not been checking bp at home. ) 06/23/2024 Travel 05/29/2024 Telephone [address] [place] [address] Anali Moreau, DO Critical Results 05/27/2024 Telephone [address] [place] [address] Chino Byrne MD Abnormal Lab Results 05/26/2024 2:30 PM COLLATERAL SPECIALIST Nurse/Clinic Staff Only [address] [place] [address] Blood Pressure 05/26/2024 2:15 PM COLLATERAL SPECIALIST Orders Only [facility] [address] [place] [address] [address] Lab, [place] Lab 05/26/2024 Travel 05/01/2024 Refill [facility] [address] [place] [address] [address] Anali Moreau, Refill Request (Losartan 25mg tablets ) 04/28/2024 3:15 PM COLLATERAL SPECIALIST Office Visit [facility] [address] [place] [address] Anali Moreau, DO Blood Pressure (currently on [...] Comments Blood Pressure 155/88 06/23/2024 11:13 AM COLLATERAL SPECIALIST Pulse 64 06/23/2024 11:13 AM COLLATERAL SPECIALIST Temperature 36.9 C (98.4 F) 11/22/2022 2:41 PM CDT Respiratory Rate 20 11/22/2022 2:41 PM CDT Oxygen Saturation 99% 05/26/2024 2:27 PM COLLATERAL SPECIALIST Inhaled Oxygen Concentration - - Weight 106.5 kg (234 lb 12.8 oz) 11/22/2023 3:19 PM CDT Height 160 cm (5' 3) 11/22/2022 2:43 PM CDT Body Mass Index 41.59 11/22/2022 2:43 PM CDT Plan of Treatment Upcoming Encounters Date Type Department Care Team (Late st Contact Info) Description 07/24/2024 2:15 PM CDT Orders Only [facility] [address] [place] [address] [place] 07/24/2024 2:40 PM CDT Nurse/Clinic Staff Only [facility] [address] [place] [address] Health Maintenance Due Date Last Done Comments [...] Comments HEMOGLOBIN A1C Routine 06/23/2024 11:48 AM COLLATERAL SPECIALIST Screening for diabetes mellitus CREATININE Routine 06/23/2024 11:48 AM COLLATERAL SPECIALIST HTN (hypertension) POTASSIUM Routine 06/23/2024 11:48 AM COLLATERAL SPECIALIST HTN (hypertension) BASIC METABOLIC PANEL Routine 05/26/2024 2:11 PM COLLATERAL SPECIALIST HTN (hypertension) LC HIV-1/O/2, 4TH GENERATION Routine 07/09/2022 3:19 PM CDT Screening for STDs (sexually transmitted diseases) LC HCV ANTIBODY RFX TO QUANT PCR Routine 07/09/2022 3:19 PM CDT Screening for STDs (sexually transmitted diseases) WEL[employer] THIN PREP PAP SCREEN IMAGED Routine 10/31/2019 11:42 AM CDT Screening for malignant neoplasm of cervix from Last 3 Months or Most Recently Relevant to Health Maintenance Results * (ABNORMAL) HEMOGLOBIN A1C (06/23/2024 11:48 AM COLLATERAL SPECIALIST) HEMOGLOBIN A1C 6.1(H) <5.7 % of total [...] BLOOD SPECIMEN / Unknown 06/23/2024 11:48 AM COLLATERAL SPECIALIST 06/23/2024 11:49 AM COLLATERAL SPECIALIST us Anali Moreau DO CHEMISTRY Final Resu lt [facility] [address] [place] [address], [facility] [address] [place] [address] * POTASSIUM (06/23/2024 11:48 AM COLLATERAL SPECIALIST) POTASSIUM 4.4 3.5 - 5.3 mmol/L [facility] Blood BLOOD SPECIMEN / Unknown 06/23/2024 11:48 AM COLLATERAL SPECIALIST 06/23/2024 11:49 AM COLLATERAL SPECIALIST us Anali Moreau DO CHEMISTRY Final Resu lt [facility] [address] [place] [address], [facility] [address] [place] [address] * CREATININE (06/23/2024 11:48 AM COLLATERAL SPECIALIST) CREATININE 0.59 0.50 - 0.99 mg/dL [facility] EGFR 116 > OR = 60 mL/min/1.73 m2 [facility] Blood BLOOD SPECIMEN / Unknown 06/23/2024 11:48 AM COLLATERAL SPECIALIST 06/23/2024 11:49 AM COLLATERAL SPECIALIST Anali Moreau DO CHEMISTRY Final Resu lt Performing Organization Address [facility]/ZIP Co de Phone Number [facility] [address] [phone], [facility] [address] [place] [phone] * (ABNORMAL) BASIC METABOLIC PANEL (05/26/2024 2:11 PM COLLATERAL SPECIALIST) GLUCOSE 43(L) 65 - 99 mg/dL [facility] [...] BLOOD SPECIMEN / Unknown 05/26/2024 2:11 PM COLLATERAL SPECIALIST 05/26/2024 2:12 PM COLLATERAL SPECIALIST Anali Moreau DO CHEMISTRY Final Resu lt [facility] [address] [place] [address], [place] [phone] [facility] [address] [place] [address] * LC HCV ANTIBODY RFX TO QUANT PCR (07/09/2022 3:19 PM CDT) Pathologist [facility] HCV Ab Non Reactive Non Reactive 07/14/2022 11:10 AM CDT [facility] ([facility]) Blood BLOOD SPECIMEN / Unknown Venipuncture / Unknown 07/09/2022 3:19 PM CDT 07/09/2022 3:22 PM CDT Narrative [facility] ([facility]) - 07/14/2022 11:10 AM CDT Performed at: [address] [place] [id number] Hide Curer: Thomas Hayes MD, Phone: [phone] [facility] Fin al Result [facility] ([facility]) [address] [place] [address], [place] * LC HIV-1/O/2, 4TH GENERATION (07/09/2022 3:19 PM CDT) Pathologist [facility] HIV Scr 4th Gen Non Reactive Non Reactive 07/14/2022 11:10 AM CDT [facility] ([facility]) Comment: HIV Negative HIV-1/HIV-2 antibodies and HIV-1 p24 antigen were NOT detected. There is no laboratory evidence of HIV infection. Blood BLOOD SPECIMEN / Unknown Venipuncture / Unknown 07/09/2022 3:19 PM CDT 07/09/2022 3:22 PM CDT Narrative [facility] ([facility]) - 07/14/2022 11:10 AM CDT Performed at: [address] [place] [id number] Hide Curer: Thomas Hayes MD, Phone: [phone] [facility] Fin al Result [facility] ([facility]) [address] [place] [address], * WELDER MANUFA[employer]URE THIN PREP PAP SCREEN IMAGED [[id number]] (10/31/2019 11:42 AM CDT) Case Report Gynecologic Cytology Report Case: [id number] Authorizing Provider: Alpa Gamboa MD Collected: 10/31/2019 1142 Ordering Location: [facility] Received: 10/31/2019 1239 Clinic First Screen: Nickolas Hopper Specimen: WELDER MANUFACTURE ThinPrep Vial Screening, Cervical 11/03/2019 1:51 PM CDT [facility] INTERPRETATION/ RESULT NEGATIVE FOR INTRAEPITHELIAL LESION OR MALIGNANCY (NIL) (none) 11/03/2019 1:51 PM CDT [facility] ENTRAL LAB[facility] IMEN ADEQUACY Satisfactory for evaluation Endocervical component present 11/03/2019 1:51 PM CDT [facility] HPV REQUEST HPV and PAP 11/03/2019 1:51 PM CDT [facility] Date of LMP 10/10/2019 11/03/2019 1:51 PM CDT [facility] EN[facility] Last Pap Date 2016 11/03/2019 1:51 PM CDT [facility] ENTRAL LAB[facility] Last Pap Result NIL 07/17/202 0 1:51 PM CDT [facility] Abnormal Pap or [place] Bx in last 5 years No 11/03/2019 1:51 PM CDT [facility] Menstrual Status Regular Periods 11/03/2019 1:51 PM CDT [facility] [place] Bx Done Today No 11/03/2019 1:51 PM CDT [facility] Additional Information None given 11/03/2019 1:51 PM CDT [facility] Comment: Cytology is screened at [facility] - [address], [place] [address] and [facility] - [address] [place] [address], [place] [address] and [facility] - [address] [place] [address] Interpreted at [facility] - [address] [place] [address], [place] [address] Automated Review Successful 11/03/2019 1:51 PM CDT [facility] Comment:Specimen processed s uccessfully by automated home health caregiver device, ThinPrep Imaging System, [employer] ANCILLARY TESTING WELDER MANUFACTURE HPV Ordered, Please see separate report 11/03/2019 1:51 PM CDT [facility] Note The pap test is [...] and malignant lesions. 11/03/2019 1:51 PM CDT [facility] Other (Cervical) Non-Blood / Unknown 10/31/2019 11:42 AM CDT 10/31/2019 12:39 PM CDT us Alpa Gamboa MD PATHOLOGY/CYTOLOGY Final Result [facility] [address] [place] [address], [place] from Last 3 Months or Most Recently Relevant to Health Maintenance Care Teams Car Dumper Operator Relationship Specialty Start Date End Date Anali Moreau DO [address] [place] [address] PCP - General Family Practice 11/22/23
[2024-07-06] MEDS: LIDOCAINE 5% PATCH 1 PATCH TRANSDERMA (06:33)
[2024-07-06 06:38] VITALS: BP 135/78; PULSE 78; RESP 18; TEMP 36.7; O2SAT 99
[2024-07-06 06:41] VITALS: BP 135/78; PULSE 78; RESP 18; TEMP 36.7
== END 2024-07-06 06:41 | disposition home or self-care (01) ==
PROVIDERS: Emergency Provider Family Medicine; PCP Family Medicine
DX: S16.1XXA Strain of muscle, fascia and tendon at neck level, initial encounter (principal); R07.89 Other chest pain
CPT/HCPCS: 71045; 93005; 94761; 99284; A9270

== ENCOUNTER 2024-11-26 08:55 | Emergency (ER) | payer MEDICAID, SELFPAY ==
[2024-11-26 08:57] VITALS: BP 147/88; PULSE 80; RESP 18; TEMP 36.8; O2SAT 97; BMI 39.0
--- OUTSIDE RECORDS SUMMARY | 2024-11-26 08:57 | XMS_ITS | Clinical Summary ---
Author Organization [employer] [facility] Address [address] [place] [address] Care Team Providers Care Apartment House Manager Name Role Phone Prieto, Anali Eliz Primary Care Provider +1- [phone] Allergies No known active allergies Medications clotrimazole (LOTRIMIN) 1 % creamIndications:Itc angelica in the vaginal area Apply topically to affected area(s) two times daily. 45 g 07/10/19 23 Active Blood Pressure Monitor KitIndications:[place] connie blood pressure reading without diagnosis of hypertension Frequency of testing: once a day 1 Each 12/09/19 23 Active mupirocin 2% ointment APPLY TOPICALLY TO THE AFFECTED AREA TWICE DAILY FOR 7 DAYS 10/24/19 24 Active famotidine (PEPCID) 20 mg tabletIndications:Hi [...] 6 Tablet 1 04/28/19 25 Active losartan 50 mg tabletIndications:HT N (hypertension) Take 1 Tablet (50 mg) by mouth once daily. 90 Tablet 2 08/20/19 25 Active hydroCHLOROthiazide 25 mg tabletIndications:HT N (hypertension) Take 1 Tablet (25 mg) by mouth once daily. 90 Tablet 09/22/19 25 Active bisoprolol 5 mg tabletIndications:Pa lpitations Take 1 Tablet (5 mg) by mouth once daily. 90 Tablet 11/19/19 25 Active bisoprolol (ZEBETA) 5 mg tabletIndications:Pa lpitations Take 1 Tablet (5 mg) by mouth once daily. 90 Tablet 3 11/22/19 24 025 Discontin ued(Reord er (E-cancel not sent)) Hospital, Clinic, or Other Facility Administered Medication [...] (12/29/2022): PVCs, on medication Dec note from [place] had visit for follow up of PVCs - seen on extended holter monitor. Has been on 2 other medications and bisoprolol has worked the best. History of Chiari malformation Overview (12/29/2022): h/o mild chiari malformation and has seen the neurologist in the past Resolved Problems Problem Noted Date Diagnosed Date Resolved Date Palpitations 11/17/2019 Encounters Date Type Department Care Team Description 11/16/2024 Refill [facility] [address] [place] [address] Anali Moreau, DO Refill Request (Bisoprolol Fumarate 5mg tablets) 09/19/2024 Refill [facility] [address] [place] [address] Anali Moreau, Refill Request (Hydrochlorothiazide 25mg tablet) from Last 3 Months Immunizations Immunization Administration [...] Date Smoking Tobacco: Every Day Cigarettes 1 28.6 Started: 1996 Smokeless Tobacco: Never Tobacco Cessation:Ready [...] Sign Reading Time Taken Comments Blood Pressure 130/66 07/24/2024 2:29 PM CDT Pulse 70 07/24/2024 2:29 PM CDT Temperature 36.9 C (98.4 F) 11/22/2022 2:41 PM CDT Respiratory Rate 20 11/22/2022 2:41 PM CDT Oxygen Saturation 99% 05/26/2024 2:27 PM ASSISTANT PROFESSOR OF BUSINESS Inhaled Oxygen Concentration - - Weight 106.5 kg (234 lb 12.8 oz) 11/22/2023 3:19 PM CDT Height 160 cm (5' 3) 11/22/2022 2:43 PM CDT Body Mass Index 41.59 11/22/2022 2:43 PM CDT Plan of Treatment Upcoming Encounters Date Type Department Care Team (Late st Contact Info) Description 12/06/2024 1:10 PM CDT Office Visit [facility] [address] [place] [address] Anali Moreau, [address] [place] [address] Health Maintenance Due Date Last Done Comments Hepatitis B series for 19+ ( 1 of 3 - 19+ 3-dose series) 2001 Pneumococcal series for age 6-49 (1 of 2 - PCV) 2001 BMI (ht and wt on same day) for age 18+ 07/10/2023 07/09/2022, 01/01/2021, 11/15/2020, Additional history exists Depression screening for age 12+ 12/09/2023 12/08/2022, 01/02/2021, 01/01/2021, Additional history exists COVID-19 vaccine series ( season) 2023 Tetanus booster 08/10/2024 08/10/2014, 11/2008, 08/30/1995 Pap test for age 21-65 10/30/2024 10/31/2019, 2019 Influenza Vaccine (#1) 2024 HIV for age 15-65 Completed 07/09/2022 Hepatitis C screening for ag e 18-79 Completed 07/09/2022 Procedures Procedure Name Priority Date/Time Associated Diagnosis Comments LC HIV-1/O/2, 4TH GENERATION Routine 07/09/2022 3:19 PM CDT Screening for STDs (sexually transmitted diseases) LC HCV ANTIBODY RFX TO QUANT PCR Routine 07/09/2022 3:19 PM CDT Screening for STDs (sexually transmitted diseases) SIDE FRAMER THIN PREP PAP SCREEN IMAGED Routine 10/31/2019 11:42 AM CDT Screening for malignant neoplasm of cervix from Last 3 Months or Most Recently Relevant to Health Maintenance Results * LC HCV ANTIBODY RFX TO QUANT PCR (07/09/2022 3:19 PM CDT) HCV Ab Non Reactive Non Reactive 07/14/2022 11:10 AM CDT [facility] ([facility]) Blood BLOOD SPECIMEN / Unknown Venipuncture / Unknown 07/09/2022 3:19 PM CDT 07/09/2022 3:22 PM CDT Narrative [facility] ([facility]) - 07/14/2022 11:10 AM CDT Performed at: [address] [place] [address] [place] [id number] Retail Warehouse Associate: Thomas Hayes MD, Phone: [phone] us [facility] Fin al Result [facility] ([facility]) [address] [place] [address], * LC HIV-1/O/2, 4TH GENERATION (07/09/2022 3:19 PM CDT) HIV Scr 4th Gen Non Reactive Non Reactive 07/14/2022 11:10 AM CDT [facility] ([facility]) Comment: HIV Negative HIV-1/HIV-2 antibodies and HIV-1 p24 antigen were NOT detected. There is no laboratory evidence of HIV infection. Blood BLOOD SPECIMEN / Unknown Venipuncture / Unknown 07/09/2022 3:19 PM CDT 07/09/2022 3:22 PM CDT Narrative [facility] ([facility]) - 07/14/2022 11:10 AM CDT Performed at: [address] [place] [id number] Retail Warehouse Associate: Thomas Hayes MD, Phone: [phone] [facility] Fin al Result [facility] ([facility]) [address] [place] [address], * SIDE FRAMER THIN PREP PAP SCREEN IMAGED [[id number]] (10/31/2019 11:42 AM CDT) Pathologist [facility] Case Report Gynecologic Cytology Report Case: [id number] Authorizing Provider: Alpa Gamboa MD Collected: 10/31/2019 1142 Ordering Location: [facility] Received: 10/31/2019 1239 Clinic First Screen: Nickolas Hopper Specimen: SIDE FRAMER ThinPrep Vial Screening, Cervical 11/03/2019 1:51 PM CDT [facility] ENTRAL LABORATORY INTERPRETATION/ RESULT NEGATIVE FOR INTRAEPITHELIAL LESION OR MALIGNANCY (NIL) (none) 11/03/2019 1:51 PM CDT [facility] ENTRAL LABORATORY at 1351 CDT SPECIMEN ADEQUACY Satisfactory for evaluation Endocervical component present 11/03/2019 1:51 PM CDT [facility] LAB[facility] HPV REQUEST HPV and PAP 11/03/2019 1:51 PM CDT [facility] Date of LMP 10/10/2019 11/03/2019 1:51 PM CDT [facility] ENTR[facility] LAB[facility] Last Pap Date 2016 11/03/2019 1:51 PM CDT [facility] Last Pap Result NIL 0 1:51 PM CDT [facility] Abnormal Pap or [place] Bx in last 5 years No 11/03/2019 1:51 PM CDT [facility] EN[facility] Menstrual Status Regular Periods 11/03/2019 1:[address] [facility] [place] Bx Done Today No 11/03/2019 1:51 PM CDT [facility] Additional Information None given 11/03/2019 1:51 PM CDT [facility] Comment: Cytology is screened at [facility] - [address] [address] and [facility] - [address], [place] [address] and [facility] - [address] [place] [address] Interpreted at [facility] - [address], [place] [address] Automated Review Successful 11/03/2019 1:51 PM CDT [facility] Comment:Specimen processed s uccessfully by automated home health assistant device, ThinPrep Imaging System, [employer] ANCILLARY TESTING SIDE FRAMER HPV Ordered, Please see separate report 11/03/2019 [...] 10/31/2019 12:39 PM CDT Alpa Gamboa MD PATHOLOGY/CYTOLOGY Final Result [facility] [address] [place] [address], [place] from Last 3 Months or Most Recently Relevant to Health Maintenance Insurance MEDICAID Care Teams Apartment House Manager Relationship Specialty Start Date End Date Anali Moreau DO [address] [place] [address] PCP - General Family Practice 11/22/23
--- NOTE | 2024-11-26 09:13 | ED.GENADULT ---
HPI - General Adult General Chief complaint: Chest Pain Stated complaint: chest pain, nausea, abdominal/side pain Time Seen by Provider: 11/26/24 08:56 Source: patient Mode of arrival: ambulatory Limitations: no limitations History of Present Illness HPI narrative: 43-year-old female, history of palpitations, hypertension, presents today with palpitations and chest pain. Patient states that she is on bisoprolol, hydrochlorothiazide and losartan. She ran out of her bisoprolol and did not take yesterday's dose. She states that she woke up around 5:00 a.m. in the morning with her heart racing and pain across her entire chest. She states that she was very tired at that time so she went back to sleep and then woke up a couple hours later with the sensation still present. She is quite concerned about missing her bisoprolol. She does endorse anxiety and states that her symptoms may be due to anxiety. She is not short of breath, diaphoretic or dizzy. She states that she still feels her heart pounding in her chest right now. She denies any recent illness. She is not coughing. She denies abdominal pain. She states that the chest pain does migrate it was on the left and then it was on the right. Some of it was substernal, that comes and goes. Related Data Home Medications ?Medication ?Instructions ?Recorded ?Confirmed bisoprolol fumarate 5 mg tablet 5 mg PO DAILY 11/23/22 10/24/23 hydrochlorothiazide 25 mg tablet 25 mg PO DAILY 11/26/24 11/26/24 losartan 50 mg tablet 50 mg PO DAILY 11/26/24 11/26/24 Allergies Allergy/AdvReac Type Severity Reaction Status Date / Time adhesives Allergy Mild rash, Uncoded 10/24/23 11:39 redness at site Review of Systems Status of ROS: Reports: 10 or more systems reviewed and unremarkable except as noted in History and below [facility] Social History Smoking Status: Current every day smoker What tobacco products do you use: cigarettes Second hand tobacco smoke exposure: Yes How often do you have a drink containing alcohol: never How often do you have six or more drinks on one occasion: Never AUDIT-C Alcohol total score: 0 Non-prescribed substance use: denies use Exam Narrative: Exam Narrative: Obese, well-developed patient, anxious. Alert and oriented. Answers questions appropriately. Thoughts are goal oriented and rational. Patient speaks in full sentences without needing to catch their breath. HEENT: Normocephalic atraumatic. Pupils are equally round reactive to light. Extraocular muscles are intact. Conjunctivae are moist without any icterus noted. Moist mucous membranes. Multiple piercings. Cardiovascular: Heart is regular rate and rhythm S1 and S2 are present without any murmurs. Lungs: Clear to auscultation bilaterally no wheezes rhonchi or rales are appreciated. Patient takes deep breaths without any discomfort. Abdomen: Soft and nontender nondistended with normal bowel sounds. Extremities: Bilateral lower extremities are without edema. Normal DP and PT pulses. Skin: Well perfused. Const: Vital Signs, click to edit/add: Vital Signs - 24 hr 11/26/24 08:57 Temperature 98.3 F Pulse Rate [Right Pulse Oximeter] 80 Respiratory Rate 18 Blood Pressure [Ri ght Forearm] 147/88 H Pulse Oximetry 97 Oxygen Delivery Me thod Room Air Course Course ED Course: EKG, read by me, shows normal sinus rhythm with a pulse of 67. She does have inverted T-waves in V1 V2 and V3. This is a change from previous EKG. Troponin is normal. CBC is unremarkable. Chemistries are unremarkable. Repeat EKG and troponin unchanged. Vital Signs Vital signs: Initial Vital Signs Temperature 98.3 F 11/26/24 08:57 Temperature Source Temporal Artery Scan 11/26/24 08:57 Pulse Rate 80 11/26/24 08:57 Pulse Rhythm Regular 11/26/24 08:57 Pulse Strength 3+ Normal 11/26/24 08:57 Respiratory Rate 18 11/26/24 08:57 Blood Pressure 147/88 H 11/26/24 08:57 Blood Pressure Mean 107 H 11/26/24 08:57 Blood Pressure Position Sitting 11/26/24 08:57 Pulse Oximetry 97 11/26/24 08:57 Oxygen Delivery Method Room Air 11/26/24 08:57 Vital Signs Temperature 98.3 F 11/26/24 08:57 Pulse Rate 80 11/26/24 08:57 Respiratory Rate 18 11/26/24 08:57 Blood Pressure 147/88 H 11/26/24 08:57 Pulse Oximetry 97 11/26/24 08:57 Oxygen Delivery Method Room Air 11/26/24 08:57 Temperature 98.3 F 11/26/24 08:57 Pulse Rate 80 11/26/24 08:57 Respiratory Rate 18 11/26/24 08:57 Blood Pressure 147/88 H 11/26/24 08:57 Pulse Oximetry 97 11/26/24 08:57 Oxygen Delivery Method Room Air 11/26/24 08:57 Medical Decision Making MDM Narrative Medical decision making narrative: 43-year-old female with palpitations and radiating chest pain. I do think that her symptoms are more consistent with anxiety versus an acute coronary syndrome. Her exam is unremarkable, she is not hypoxic, tachypneic or tachycardic. I do not believe there is any lung pathology accounting for her discomfort today. Recommend restarting her medications as prescribed and following up if needed to discuss anxiety. Lab Data Lab results reviewed: Yes I reviewed the patient's lab results Labs: Lab Results 11/26/24 11/26/24 11/26/24 Range/Units 09:00 09:20 09:28 WBC 11.56 H (4.50-11.00) K/uL RBC 3.99 L (4.00-5.20) m/uL Hgb 12.6 (12.0-16.0) gm/dL Hct 37.7 (33.0-51.0) % MCV 95 (80-100) fL MCH 32 (26-34) pg MCHC 33 (32-36) gm/dL RDW Coeff of Arsenio 13.0 (11.5-15.5) % Plt Count 299 (140-440) K/uL Neut % (Auto) 64.5 (42.0-72.0) % Lymph % (Auto) 26.5 (20-44) % [place] % (Auto) 5.5 (0.0-11.0) % Eos % (Auto) 2.2 (0.0-7.0) % Baso % (Auto) 0.3 (0.0-3.0) % Neut # (Auto) 7.50 H (1.7-7.0) K/uL Lymph # (Auto) 3.10 H (0.90-2.90) K/uL [place] # (Auto) 0.60 (0.00-0.90) K/UL Eos # (Auto) 0.30 (0.00-0.50) K/uL Baso # (Auto) 0.00 (0.00-0.30) K/uL Abs Immat Gran (auto) 0.10 (0.00-0.30) K/uL Imm/Tot Granulo (auto) 1.0 % Sodium 135 (135-149) mmol/L Potassium 3.5 L (3.6-5.1) mmol/L Chloride 105 (96-114) mmol/L Carbon Dioxide 23 (20-32) mmol/L Anion Gap 7 (7-15) mEq/L BUN 21 (5-24) mg/dL Creatinine 0.9 (0.5-1.5) mg/dL Estimated Creat Clear 68.05 Estimated GFR 82 ml/min Glucose 127 H (60-115) mg/dL Calcium 9.5 (8.4-10.6) mg/dL Troponin I < 0.01 (0.01-0.04) ng/mL Lab Acknowledgement Test Added POC Troponin I Cancelled 11/26/24 Range/Units 11:13 WBC (4.50-11.00) K/uL RBC (4.00-5.20) m/uL Hgb (12.0-16.0) gm/dL Hct (33.0-51.0) % MCV (80-100) fL MCH (26-34) pg MCHC (32-36) gm/dL RDW Coeff of Arsenio (11.5-15.5) % Plt Count (140-440) K/uL Neut % (Auto) (42.0-72.0) % Lymph % (Auto) (20-44) % [place] % (Auto) (0.0-11.0) % Eos % (Auto) (0.0-7.0) % Baso % (Auto) (0.0-3.0) % Neut # (Auto) (1.7-7.0) K/uL Lymph # (Auto) (0.90-2.90) K/uL [place] # (Auto) (0.00-0.90) K/UL Eos # (Auto) (0.00-0.50) K/uL Baso # (Auto) (0.00-0.30) K/uL Abs Immat Gran (auto) (0.00-0.30) K/uL Imm/Tot Granulo (auto) % Sodium (135-149) mmol/L Potassium (3.6-5.1) mmol/L Chloride (96-114) mmol/L Carbon Dioxide (20-32) mmol/L Anion Gap (7-15) mEq/L BUN (5-24) mg/dL Creatinine (0.5-1.5) mg/dL Estimated Creat Clear Estimated GFR ml/min Glucose (60-115) mg/dL Calcium (8.4-10.6) mg/dL Troponin I (0.01-0.04) ng/mL Lab Acknowledgement POC Troponin I 0.00 L ECG Data Attestation: I personally reviewed and interpreted this ECG as follows: Discharge Plan Discharge Clinical Impression: Heart palpitations, Atypical chest pain Patient Disposition: Home, Self-Care Condition: Stable Additional Instructions: Your workup today was unremarkable. Heart labs were unremarkable. Recommend you follow-up with your primary care provider this week to discuss symptoms. Certainly restart your medications as prescribed. Return to the ER if your symptoms worsen. Prescriptions: No Action bisoprolol fumarate 5 mg tablet 5 mg PO DAILY losartan 50 mg tablet 50 mg PO DAILY hydrochlorothiazide 25 mg tablet 25 mg PO DAILY Follow Up/Referrals: Anali Moreau DO [Primary Care Provider, Family Practice] Stand Alone Forms: [facility] Info Instructions
[2024-11-26 09:40] LABS: Hematocrit 37.7 % (33.0-51.0); Hemoglobin* 12.6 gm/dL (12.0-16.0); Immature Granulocytes Pct Auto 1.0 %; Mean Corpuscular HGB Conc 33 gm/dL (32-36); Mean Corpuscular Hemoglobin 32 pg (26-34); Mean Corpuscular Volume 95 fL (80-100); RDW Coefficient of Variation % 13.0 % (11.5-15.5); Red Blood Count 3.99 m/uL (4.00-5.20); White Blood Count* 11.56 K/uL (4.50-11.00)
[2024-11-26 09:41] LABS: Immature Granulocytes Abs Auto 0.10 K/uL (0.00-0.30); Lymphocytes Absolute Auto 3.10 K/uL (0.90-2.90); Slide Review Reflex No
[2024-11-26 09:46] LABS: Chloride* 105 mmol/L (96-114); Sodium* 135 mmol/L (135-149)
[2024-11-26 09:47] LABS: Potassium* 3.5 mmol/L (3.6-5.1)
[2024-11-26 09:49] LABS: Blood Urea Nitrogen* 21 mg/dL (5-24); Creatinine* 0.9 mg/dL (0.5-1.5); Est. Creatinine Clearance* 68.05; Estimated Glomerular Filt Rate 82 ml/min
[2024-11-26 09:50] LABS: Anion Gap 7 mEq/L (7-15); Calcium* 9.5 mg/dL (8.4-10.6); Carbon Dioxide* 23 mmol/L (20-32); Glucose* 127 mg/dL (60-115)
[2024-11-26 11:21] LABS: Troponin, Point-of-Care* 0.00 ng/ml (0.01-0.04)
== END 2024-11-26 11:32 | disposition home or self-care (01) ==
PROVIDERS: Emergency Provider Family Medicine; PCP Family Medicine
DX: R00.2 Palpitations (principal); R07.89 Other chest pain
CPT/HCPCS: 36415; 80048; 84484; 85025; 93005; 99284

== ENCOUNTER 2025-03-22 08:19 | Emergency (ER) | payer MEDICAID, SELFPAY ==
[2025-03-22 08:44] VITALS: BP 137/80; PULSE 71; RESP 18; TEMP 36.4; O2SAT 100; BMI 39.0
--- NOTE | 2025-03-22 08:57 | ED_ITS ---
HPI - Eye Problem General Time Seen by Provider: 08:57 Date Seen: 03/22/25 Chief complaint: Eye Problems Stated complaint: [place] eye R eye Time Seen by Provider: 03/22/25 08:57 Source: patient and RN notes reviewed Mode of arrival: ambulatory Limitations: no limitations History of Present Illness HPI Narrative: This 44 old female awoke with her right eye mattered shut this morning. It is watery, itchy. She has had no fevers or chills. She has had a little underlying nasal congestion. She does work in public. She is wearing glasses right now, states she just uses them for driving, no contact use. The left eye is unaffected at this time. There is no visual change, no facial swelling. Related Data Home Medications ?Medication ?Instructions ?Recorded ?Confirmed bisoprolol fumarate 5 mg tablet 5 mg PO DAILY 11/23/22 03/22/25 hydrochlorothiazide 25 mg tablet 25 mg PO DAILY 03/22/25 losartan 50 mg tablet 50 mg PO DAILY 11/26/2408/11 Previous Rx's ?Medication ?Instructions ?Recorded gentamicin 0.3 % eye drops 2 drp ophthalmic (eye-right ) QID 5 03/22/25 days #5 mL Allergies Allergy/AdvReac Type Severity Reaction Status Date / Time adhesive AdvReac Mild Rash Verified 03/22/25 08:44 Review of Systems Narrative: As per HPI. PFSH PFSH Social History Smoking Status: Current every day smoker What tobacco products do you use: cigarettes Second hand tobacco smoke exposure: Yes How often do you have a drink containing alcohol: never How often do you have six or more drinks on one occasion: Never AUDIT-C Alcohol total score: 0 Non-prescribed substance use: denies use Exam Const: Vital Signs, click to edit/add: Vital Signs - 24 hr 03/22/25 08:44 Temperature 97.6 F Pulse Rate [Pulse Oximeter] 71 Respiratory Rate 18 Blood Pressure [Ri ght Upper Arm] 137/80 Pulse Oximetry 100 Oxygen Delivery Me thod Room Air This 44-year-old female is alert, interactive, no apparent distress. Glasses are removed, there is no periorbital swelling or erythema. Can see a little dry crusting around the inner upper eye area. There is no discharge at this time. She has some slight pinkish change to the conjunctiva of the right eye. Her pupils equal round reactive, conjugate gaze. Speech is normal, face atraumatic and certainly no periorbital swelling or erythema on the right side. She has no submental adenopathy no preauricular adenopathy. Documenting provider has reviewed patient's vital signs: yes Course Course ED Course: Have reviewed with patient that she definitely seems to have symptoms for pink eye. We discussed that this certainly can be viral but we typically treat with the eyedrops. If she is not improving or worsening without line treatment, she will need re-evaluation. We discussed the contagiousness of this, the need for good hand hygiene. If she does develop symptoms in her left eye, use eyedrops the same in that eye. Vital Signs Vital signs: Initial Vital Signs Temperature 97.6 F 03/22/25 08:44 Temperature Source Temporal Artery Scan 03/22/25 08:44 Pulse Rate 71 03/22/25 08:44 Respiratory Rate 18 03/22/25 08:44 Blood Pressure 137/80 03/22/25 08:44 Blood Pressure Mean 99 03/22/25 08:44 Blood Pressure Position Sitting 03/22/25 08:44 Pulse Oximetry 100 03/22/25 08:44 Oxygen Delivery Method Room Air 03/22/25 08:44 Vital Signs Temperature 97.6 F 03/22/25 08:44 Pulse Rate 71 03/22/25 08:44 Respiratory Rate 18 03/22/25 08:44 Blood Pressure 137/80 03/22/25 08:44 Pulse Oximetry 100 03/22/25 08:44 Oxygen Delivery Method Room Air 03/22/25 08:44 Temperature 97.6 F 03/22/25 08:44 Pulse Rate 71 03/22/25 08:44 Respiratory Rate 18 03/22/25 08:44 Blood Pressure 137/80 03/22/25 08:44 Pulse Oximetry 100 03/22/25 08:44 Oxygen Delivery Method Room Air 03/22/25 08:44 Discharge Plan Discharge Clinical Impression: Acute conjunctivitis of right eye Qualifiers: Acute conjunctivitis type: unspecified Qualified Code(s): H10.31 - Unspecified acute conjunctivitis, right eye Patient Disposition: Home, Self-Care Condition: Stable Instructions: How to Use Eye Drops (ED), Conjunctivitis (ED) Additional Instructions: Use eyedrops as prescribed. If you do develop symptoms in the left eye, can use the eyedrops the same to this eye. Is essential to wash your hands every time you touch her eyes to help prevent spread to your other eye as well as to other people. If you are not improving over the next few days, are worsening at any point, need to seek re-evaluation. Activity Level: No Restrictions Prescriptions: New gentamicin 0.3 % drops 2 drp ophthalmic (eye-right) QID 5 Days Qty: 5 0RF No Action bisoprolol fumarate 5 mg tablet 5 mg PO DAILY losartan 50 mg tablet 50 mg PO DAILY hydrochlorothiazide 25 mg tablet 25 mg PO DAILY Follow Up/Referrals: Anali Moreau DO [Primary Care Provider, Family Practice] Stand Alone Forms: [facility] Info Instructions, Work/School Release
--- OUTSIDE RECORDS SUMMARY | 2025-03-22 09:14 | XMS_ITS | Clinical Summary ---
Author Organization [email or web address] Address [address] [place] [id number] Care Team Providers Care Nitroglycerin Supervisor Name Role Phone Prieto, Anali Wellington DO Primary Care Provider [phone] Allergies No known active allergies Medications clotrimazole (LOTRIMIN) 1 % creamIndications:Itc angelica in the vaginal area Apply topically to affected area(s) two times daily. 45 g 07/10/19 23 Active Blood Pressure Monitor KitIndications:Sultan connie blood pressure reading without diagnosis of hypertension Frequency of testing: once a day 1 Each 12/09/19 23 Active famotidine (PEPCID) 20 mg tabletIndications:Hi story [...] daily. 90 Tablet 2 08/20/19 25 Active bisoprolol 5 mg tabletIndications:Pa lpitations Take 1 Tablet (5 mg) by mouth once daily. 90 Tablet 2 12/14/19 25 Active hydroCHLOROthiazide 25 mg tabletIndications:HT N (hypertension) Take 1 Tablet (25 mg) by mouth once daily. 90 Tablet 2 12/14/19 25 Active cyclobenzaprine (FLEXERIL) 5 mg tabletIndications:Ri ght-sided low back pain without sciatica, unspecified chronicity Take 1 Tablet (5 mg) by mouth 3 times daily if needed for Muscle Spasm. 15 Tablet 12/14/19 25 Active Hospital, Clinic, or Other Facility Administered Medication Ordered Dose Route Frequency Start Date End Date Status etonogestrel subdermal implant (NEXPLANON) 68 mg implant [address],Encounter for removal and reinsertion of Nexplanon 1 Each Sdrm Q 3 YEARS 11/19/2022 11/18/2025 Active Active Problems Problem Noted Date Diagnosed Date Intractable migraine without status migrainosus 12/13/2024 HTN (hypertension) 12/29/2022 Prediabetes 12/08/[address] 11/17/2019 Overview (11/19/2022): Placed in right arm on 11/17/22. Due for removal in 3 years-11/17/25. Alpa Branch PA-C, Family Medicine.....................11/19/2022 10:18 AM Palpitations Overview (12/29/2022): PVCs, on medication Dec note from [place] had visit for follow up of PVCs - seen on extended holter monitor. Has been on 2 other medications and bisoprolol has worked the best. History of Chiari malformation Overview (12/29/2022): h/o mild chiari malformation and has seen the neurologist in the past Resolved Problems Problem Noted Date Diagnosed Date Resolved Date Palpitations 11/17/2019 Immunizations Immunization Administration Dates Next Due DTP [...] pr ostate cancer Paternal Grandmother (Age 77) c omplications of diabetes Sister Alive Social History Tobacco Use Types Packs/Day Years Used Date Smoking Tobacco: Every Day Cigarettes 1 28.9 Started: 1996 Smokeless Tobacco: Never Tobacco Cessation:Ready to Q uit: No; Counseling Given: Yes Alcohol Use Standard Drinks/Week Comments Not Currently 0 (1 standard drink = 0.6 oz pur e alcohol) PHQ-2 Answer Date Recorded PHQ-2 TOTAL SCORE 1 12/08/2022 Social Connections Answer Date Recorded Do you often feel lonely or isolated from those around you? 0 12/13/2024 Financial Resource Strain Answer Date R ecorded Difficulty of Paying Living Expenses 3 12/13/2024 Difficulty of Paying Living Expenses Not on file 12/13/2024 Food Insecurity Answer Date Recorded Do you worry your food will run out before you are able to buy more? 1 12/13/2024 Transportation Needs Answer Date Record ed Does lack of transportation keep you from medica l appointments? 1 12/13/2024 Does lack of transportation keep you from work, meetings or getting things that you need? 1 12/13/2024 Housing Stability Answer Date Recorded What is your housing situation today? 1 12/13/2024 Utilities Answer Date Recorded Do you have trouble paying f or utilities (for example, heat, electricity, water, phone)? 1 12/13/2024 Comments No Sex and Gender Information Value Date Recorded Sex Assigned at Not on file Legal Sex Female 8:09 AM CDT Gender Identity Not on file Sexual Orientation Not on file Obstetrics History Last Filed Vital Signs Vital Sign Reading Time Taken Comments Blood Pressure 114/76 12/13/2024 9:21 AM CDT Pulse 74 12/13/2024 9:21 AM CDT Temperature 36.9 C (98.4 F) 11/22/2022 2:41 PM CDT Respiratory Rate 20 11/22/2022 2:41 PM CDT Oxygen Saturation 99% 05/26/2024 2:27 PM PASTORAL COUNSELOR Inhaled Oxygen Concentration - - Weight 106.5 [...] 6-49 (1 of 2 - PCV) 2001 HPV series for age 9-45 (1 - 3-dose SCDM series) 2009 BMI (ht and wt on same day) for age 18+ 07/10/2023 07/09/2022, 01/01/2021, 11/15/2020, Additional history exists Depression screening for age 12+ 12/09/2023 12/08/2022, 01/02/2021, 01/01/2021, Additional history exists Tetanus booster 08/10/2024 08/10/2014, 10/0 11/2008, 08/30/1995 Pap test for age 21-65 10/30/2024 10/31/2019, 2019 COVID-19 vaccine series (2024- season) 2024 Influenza Vaccine (#1) 2024 RSV vaccine for adults or (1 - 1-dose 75+ series) 2057 HIV for age 15-65 Completed 07/09/2022 Hepatitis C screening for ag e 18-79 Completed 07/09/2022 Procedures Procedure Name Priority Date/Time Associated Diagnosis Comments LACI HIV-1/O/2, 4TH GENERATION Routine 07/09/2022 3:19 PM CDT Screening for STDs (sexually transmitted diseases) LACI HCV ANTIBODY RFX TO QUANT PCR Routine 07/09/2022 3:19 PM CDT Screening for STDs (sexually transmitted diseases) [employer] THIN PREP PAP SCREEN IMAGED Routine 10/31/2019 11:42 AM CDT Screening for malignant neoplasm of cervix from Last 3 Months or Most Recently Relevant to Health Maintenance Results * LC HCV ANTIBODY RFX TO QUANT PCR (07/09/2022 3:19 PM CDT) Pathologist [facility] HCV Ab Non Reactive Non Reactive 07/14/2022 11:10 AM CDT [facility] ([facility]) Blood BLOOD SPECIMEN / Unknown Venipuncture / Unknown 07/09/2022 3:19 PM CDT 07/09/2022 3:22 PM CDT Narrative [facility] ([facility]) - 07/14/2022 11:10 AM CDT Performed at: [address] [place] [address] [address] [place], [place] [id number] Bridge Gang Worker: Thomas Hayes MD, Phone: [phone] [facility] Fin al Result [facility] ([facility]) [address] [place] [address], * LC HIV-1/O/2, 4TH GENERATION (07/09/2022 3:19 PM CDT) [facility] HIV Scr 4th Gen Non Reactive Non Reactive 07/14/2022 11:10 AM CDT [facility] ([facility]) Comment: HIV Negative HIV-1/HIV-2 antibodies and HIV-1 p24 antigen were NOT detected. There is no laboratory evidence of HIV infection. Blood BLOOD SPECIMEN / Unknown Venipuncture / Unknown 07/09/2022 3:19 PM CDT 07/09/2022 3:22 PM CDT Narrative [facility] ([facility]) - 07/14/2022 11:10 AM CDT Performed at: - [facility] [address] [place], [place] [id number] Bridge Gang Worker: Thomas Hayes MD, Phone: [phone] [facility] Fin al Result [facility] ([facility]) [address] [place] [address], * [employer] THIN PREP PAP SCREEN IMAGED [[id number]] (10/31/2019 11:42 AM CDT) Case Report Gynecologic Cytology Report Case: [id number] Authorizing Provider: Alpa Gamboa MD Collected: 10/31/2019 1142 Ordering Location: [facility] Received: 10/31/2019 1239 Clinic First Screen: Nickolas Hopper Specimen: [employer] ThinPrep Vial Screening, Cervical 11/03/2019 1:51 PM CDT [facility] INTERPRETATION/ RESULT NEGATIVE FOR INTRAEPITHELIAL LESION OR MALIGNANCY (NIL) (none) 11/03/2019 1:51 PM CDT [facility] at 1351 CDT SPECIMEN ADEQUACY Satisfactory for evaluation Endocervical component present 11/03/2019 1:51 PM CDT [facility] HPV REQUEST HPV and PAP 11/03/2019 1:51 PM CDT [facility] Date of LMP 10/10/2019 11/03/2019 1:51 PM CDT [facility] Last Pap Date 2016 11/03/2019 1:51 PM CDT [facility] Last Pap Result NIL 0 1:51 PM CDT [facility] Abnormal Pap or Wilson Bx in last 5 years No 11/03/2019 1:51 PM CDT [facility] Menstrual Status Regular Periods 11/03/2019 1:51 PM CDT [facility] Wilson Bx Done Today No 11/03/2019 1:51 PM CDT [facility] Additional Information None given 11/03/2019 1:51 PM CDT [facility] Comment: Cytology is screened at [facility] - [address], [place] [address] and [facility] - [address] [place] [address], [place] [address] and [facility] - [address] [place] [address] Interpreted at [facility] - [address] [place] [address], [place] [address] Automated Review Successful 11/03/2019 1:51 PM CDT [facility] Comment:Specimen processed s uccessfully by automated content developer device, ThinPrep Imaging System, [employer] ANCILLARY TESTING [employer] DEVEL[employer] HPV Ordered, Please see separate report 11/03/2019 1:51 PM CDT [facility] Note The pap test is [...] and malignant lesions. 11/03/2019 1:51 PM CDT [facility] Other (Cervical) Non-Blood / Unknown 10/31/2019 11:42 AM CDT 10/31/2019 12:39 PM CDT us Alpa Gamboa MD PATHOLOGY/CYTOLOGY Final Result [facility] [address] [place] [address], [place] from Last 3 Months or Most Recently Relevant to Health Maintenance Insurance [facility] Care Teams Nitroglycerin Supervisor Relationship Specialty Start Date End Date Anali Moreau DO [address] [place] [address] PCP - General Family Practice 11/22/23
== END 2025-03-22 09:29 | disposition home or self-care (01) ==
LOC: ED 09:10
PROVIDERS: Emergency Provider Family Medicine; PCP Family Medicine
DX: H10.31 Unspecified acute conjunctivitis, right eye (principal); F17.210 Nicotine dependence, cigarettes, uncomplicated
CPT/HCPCS: 99282; 99283